=== PATIENT | female | born 1975 | race Caucasian/White ===

== ENCOUNTER → 2017-10-12 | Outpatient (CLI) | payer OTHER ==
[~2017-10-12] MED LIST: ACYC400 PO; ALLERGY RELIEF10 MG PO; BUSP10 PO; CITA20 PO; CYCL10 PO; Cyclobenzaprine5 MG PO; DEEP BLUE RELI; Diclofenac Sodi50 MG; Flonase 0.05% N16 GM; LORA1 PO; MAGNESIUM400 M1; OMEP20ER PO; PROM25 PO; Prednisone20 MG PO; RANI150 PO; SERT50 PO; SUCR1 PO; Triamcinolone A15 GM TOP
[2017-10-14 12:41] LABS: HPV Genotype 16 Not Detected (NOTDET); HPV Genotype 18 Not Detected (NOTDET)
[2017-10-18 12:07] LABS: HPV High Risk Other Not Detected (NOTDET)
== END ==
LOC: LAB 17:45
PROVIDERS: Registered Nurse Community Health
DX: Z12.4 Encounter for screening for malignant neoplasm of cervix (principal)
CPT/HCPCS: 87624; G0123

== ENCOUNTER → 2018-11-28 | Outpatient (CLI) | payer OTHER | END | disposition home or self-care (01) | LOC: LAB SHORT 12:02 → LAB 12:02 | DX: R10.2 Pelvic and perineal pain (principal) | CPT/HCPCS: 87086 ==

== ENCOUNTER → 2021-03-31 | Outpatient (CLI) | payer OTHER ==
[2021-04-01 13:11] LABS: HPV 16 Negative (Negative); HPV 18 Negative (Negative); HPV OTHER HR TYPES Negative (Negative)
== END ==
LOC: LAB 13:44 → LAB SHORT 13:44
PROVIDERS: Registered Nurse Community Health
DX: Z12.4 Encounter for screening for malignant neoplasm of cervix (principal)
CPT/HCPCS: 87624; G0123

== ENCOUNTER 2023-06-24 09:45 | Day surgery (SDC) | payer OTHER ==
[~2023-06-24] VITALS: Ht 157.5 cm; Wt 55.4 kg
[2023-06-24] MEDS ORDERED: BUPR75 (10:07)
[2023-06-24] MEDS ORDERED: Clonazepam0.125 MG (10:08)
[2023-06-24] MEDS ORDERED: MONT5TCH (10:08)
[2023-06-24] MEDS ORDERED: BUSP5 (10:08)
[2023-06-24] MEDS ORDERED: ALBU2.5V5 (10:09)
[2023-06-24 12:18] VITALS: BP 101/60
== END 2023-06-24 12:17 | disposition home or self-care (01) ==
LOC: ORSCSDS 09:45
PROVIDERS: Internal Medicine Gastroenterology
PROC: 0DBE8ZX Excision of Large Intestine, Via Natural or Artificial Opening Endoscopic, Diagnostic (ICD-10-PCS; principal; 2023-06-24 11:00)
PROC: 0DB98ZX Excision of Duodenum, Via Natural or Artificial Opening Endoscopic, Diagnostic (ICD-10-PCS; principal; 2023-06-24 11:00)
PROC: 0DB68ZX Excision of Stomach, Via Natural or Artificial Opening Endoscopic, Diagnostic (ICD-10-PCS; principal; 2023-06-24 11:00)
DX: R19.4 Change in bowel habit (principal); K29.70 Gastritis, unspecified, without bleeding; F17.210 Nicotine dependence, cigarettes, uncomplicated; Z79.899 Other long term (current) drug therapy
CPT/HCPCS: 88305; 88342; J2704; J7120

== ENCOUNTER → 2023-07-12 | Outpatient (CLI) | payer OTHER ==
[~2023-07-12] MED LIST changes: +ALBU2.5V5; +BUPR75; +BUSP5; +Clonazepam0.125 MG; +MONT5TCH
== END ==
LOC: LAB 11:26 → LAB SHORT 11:26
PROVIDERS: Physician Assistant Medical
DX: R15.1 Fecal smearing (principal); R19.5 Other fecal abnormalities
CPT/HCPCS: 82653; 83993

== ENCOUNTER → 2024-07-16 | Outpatient (CLI) | payer OTHER ==
[~2024-07-16] MED LIST changes: +BUPROPION XL450 MG PO; +Budeprion Xl300 MG MT; +CREON DR 12,001 EACH PO; +MONT10T PO; +PROG100 PO; +QUET100 MT; +SUMA25 PO; +TOPI50 PO
[2024-07-16 15:45] LABS: Candida Group, PCR NOT DETECTED (NOT DETECT); Candida glabrata-krusei, PCR NOT DETECTED (NOT DETECT)
[2024-07-16 15:48] LABS: Bacterial Vaginosis PCR Positive (NEGATIVE)
== END | disposition home or self-care (01) ==
LOC: LAB 12:39 → LAB SHORT 12:39
PROVIDERS: Registered Nurse Community Health
DX: N89.8 Other specified noninflammatory disorders of vagina (principal)
CPT/HCPCS: 87481; 87661; 87801

== ENCOUNTER → 2024-08-15 | Outpatient (CLI) | payer OTHER ==
[~2024-08-15] MED LIST changes: -Budeprion Xl300 MG MT; +MULVITA PO; +Triamcinolone A15 G2; +VITAMIN D5000 UNIT PO
[2024-08-16 14:31] LABS: Percent Saturation 42.7 % (15.0-50.0)
== END | disposition home or self-care (01) ==
LOC: LAB 12:40 → LAB SHORT 12:40
PROVIDERS: Internal Medicine Hematology & Oncology
DX: E61.1 Iron deficiency (principal)
CPT/HCPCS: 82607; 82728; 83540; 83550

== ENCOUNTER 2024-08-29 11:08 | Day surgery (SDC) | payer OTHER ==
[~2024-08-29] VITALS: Ht 157.5 cm; Wt 65.3 kg
[2024-08-29] VITALS (12 sets, daily range): BP systolic 112–134; BP diastolic 64–81
[~2024-08-29 11:08] MED LIST changes: +BUPROPION XL450 M1 PO; +Buspirone HCl15 MG PO; -Triamcinolone A15 G2; +Triamcinolone A15 G2 TOP
[2024-08-29] MEDS ORDERED: Lactated Ringer's 1,000 ML IV SCH ×2 (11:55→16:55)
[2024-08-29] MEDS ORDERED: CeFAZolin Sodium 2,000 MG in NS 100 ML IV SCH ×2 (11:55→19:30)
[2024-08-29] MEDS ORDERED: CeFAZolin Sodium 2,000 MG VIAL ONE (12:01)
--- NOTE | 2024-08-29 12:24 | NUR ---
History, Chart, Medications and Allergies reviewed before start of procedure. Pre-Op teaching done. Pt verbalizes understanding. Patient confirms NPO status and agrees with scheduled surgery. PT BELONGINGS BAG PLACED UNDER BED. PT REQUESTS TO LEAVE CONTACTS IN. SAYS SHE CAN SLEEP WITH THEM IN.
[2024-08-29] MEDS ORDERED: Bupivacaine 0.5% HCl 5 MG/ML 30MLVIAL ONE (12:38)
--- NOTE | 2024-08-29 12:42 | NUR ---
CONTACTS OUT PER ANESTHESIOLOGIST. PT REMOVED & PLACED IN INDIVIDUAL SPECIMEN CUPS WITH SALINE, LABELLED & PLACED WITH PT BELONGINGS.
[2024-08-29] MEDS ORDERED: Acetaminophen 500 MG Tab PO ONE (12:45)
[2024-08-29] MEDS ORDERED: Ondansetron HCl 2 MG / ML 2ML Vial ONE (12:54)
[2024-08-29] MEDS ORDERED: Lidocaine HCl 2% 20 ML MDV ONE (12:54)
[2024-08-29] MEDS ORDERED: propofoL 20 ML IV ONE (12:54)
[2024-08-29] MEDS ORDERED: Metoclopramide HCl 5MG / ML 2ML Vial ONE (12:54)
[2024-08-29] MEDS ORDERED: Rocuronium Bromide 10 MG/ML 5ML Injection IV ONE (12:54)
[2024-08-29] MEDS ORDERED: HYDROmorphone HCl/Pf 1MG SYR ONE (12:55)
[2024-08-29] MEDS ORDERED: Midazolam HCl 1MG / ML 2ML Vial ONE (13:07)
[2024-08-29] MEDS ORDERED: Magnesium Sulfate 500 MG / ML 2ML Vial IV ONE (13:25)
[2024-08-29] MEDS ORDERED: Sugammadex Sodium 200 MG/2ML SDV (100 MG/ML) ONE (15:28)
--- NOTE | 2024-08-29 16:29 | NUR ---
ARRIVAL TO UNIT AFTER RECEIVING REPORT FROM GAMING DEALER, PATIENT TRANSFERRED TO UNIT AT APPROX 1615. PATIENT ALERT AND ORIENTED X4. COMMUNICATES NEEDS EFFECTIVELY. AMBULATED FROM GURNEY TO RESTROOM TO VOID WITH SBA. BACK IN BED. S/P ROBOTIC TOTAL HYSTER - X4 LAP SITES C/D/I. DENIES PAIN @ THIS TIME - MD WONDERLY TO PLACE ORDERS FOR PAIN MANAGEMENT PER GAMING DEALER. TOLERATING SMALL SIPS OF WATER. SCANT BLEEDING ON NITA PAD. CALL LIGHT IN REACH. FAMILY AT BEDSIDE.
[2024-08-29] MEDS ORDERED: SUMAtriptan succinate 50 MG Tab PO PRN (16:45)
[2024-08-29] MEDS ORDERED: Promethazine HCl 25 MG Tab PO PRN (16:50)
[2024-08-29] MEDS ORDERED: FLU VACC TS2024-25(6MOS UP)/PF 45 MCG/0.5 ML SYRINGE IM SCH (16:55)
[2024-08-29] MEDS ORDERED: HYDROmorphone HCl/Pf 1MG SYR IV PRN (16:55)
[2024-08-29] MEDS ORDERED: Naloxone HCl 0.4MG / ML 1ML Vial IV PRN (16:55)
[2024-08-29] MEDS ORDERED: OxyCODONE 5 mg/Acetamin 325 mg TABLET PO PRN (16:55)
[2024-08-29] MEDS ORDERED: Promethazine HCl 12.5 MG Supp PR PRN (16:55)
[2024-08-29] MEDS ORDERED: Ondansetron 4 MG TAB PO PRN (17:00)
[2024-08-29] MEDS ORDERED: Amylase/Lipase/Protease DR Cap 12,000 PO PRN (17:00)
[2024-08-29] MEDS ORDERED: Ondansetron HCl 2 MG / ML 2ML Vial IV PRN (17:00)
[2024-08-29] MEDS ORDERED: Simethicone 80 MG Chew PO PRN (17:00)
[2024-08-29] MEDS ORDERED: Ketorolac Tromethamine 30mg Vial IV PRN (17:05)
[2024-08-29] MEDS ORDERED: Amylase/Lipase/Protease DR Cap 12,000 PO SCH (17:30)
--- NOTE | 2024-08-29 17:53 | NUR ---
SHIFT SUMMARY NO ACUTE CHANGES SINCE ARRIVAL TO UNIT. POST OP VS REMAIN STABLE. PAIN TOLERABLE PER EMAR AND WITH KPAD IN PLACE. X4 LAP SITES REMAIN C/D/I. SCANT DRAINAGE ON NITA PAD. EAGER TO DC HOME. AWAITING LARGER POST OP VOID. TOLERATING PO INTAKE - DENIES NAUSEA/VOMITING. WILL CONTINUE TO MONITOR AND REPORT TO ONCOMING RN.
[2024-08-29] MEDS ORDERED: BusPIRone HCl 10 MG Tab PO SCH (21:00)
[2024-08-29] MEDS ORDERED: Acyclovir 400 MG Tab PO SCH (21:00)
[2024-08-29] MEDS ORDERED: BuPROPion HCl 75 MG Tab PO SCH (21:00)
[2024-08-29] MEDS ORDERED: Montelukast Sodium 10 MG Tab PO SCH (21:00)
[2024-08-29] MEDS ORDERED: Topiramate 100 MG Tab PO SCH (21:00)
[2024-08-29] MEDS ORDERED: QUEtiapine Fumarate 100 MG Tab PO SCH (21:00)
--- NOTE | 2024-08-29 21:26 | NUR ---
DISCHARGE SUMMARY: PT D/C TO HOME W/FAMILY MEMBER TO DRIVE. DISCHARGE INSTRUCTIONS AND F/U CARE REV W/PT. EXTRA NITA PADS AND DC INSTRUCTIONS SENT W/PT. PT REP HAVING ALREADY PICKED UP PAIN MED SCRIPT. PT VSS, NO DISTRESS NOTED. PT AMB INDEP W/FAMILY MEMBER AT SIDE. PRIMARY RN UPDATED.
[2024-08-30] MEDS ORDERED: Omeprazole 20 MG CapCR PO SCH (07:30)
[2024-08-30] MEDS ORDERED: Loratadine 10 MG Tab PO SCH (09:00)
[2024-08-30] MEDS ORDERED: Estradiol 1 MG Tab PO SCH (09:00)
== END 2024-08-29 21:00 | disposition home or self-care (01) ==
LOC: ORSCMMR 11:08 → ORD 12:30 → SURS 16:09 → ORSCMMR 21:00
PROVIDERS: Obstetrics & Gynecology
PROC: 0UT9FZZ Resection of Uterus, Via Natural or Artificial Opening With Percutaneous Endoscopic Assistance (ICD-10-PCS; principal; 2024-08-29 12:30)
PROC: 0UT2FZZ Resection of Bilateral Ovaries, Via Natural or Artificial Opening With Percutaneous Endoscopic Assistance (ICD-10-PCS; principal; 2024-08-29 12:30)
PROC: 0UT7FZZ Resection of Bilateral Fallopian Tubes, Via Natural or Artificial Opening With Percutaneous Endoscopic Assistance (ICD-10-PCS; principal; 2024-08-29 12:30)
DX: N92.0 Excessive and frequent menstruation with regular cycle (principal); N94.10 Unspecified dyspareunia; D50.0 Iron deficiency anemia secondary to blood loss (chronic); N84.1 Polyp of cervix uteri; N94.6 Dysmenorrhea, unspecified; R10.2 Pelvic and perineal pain; N80.03 Adenomyosis of the uterus; N83.8 Other noninflammatory disorders of ovary, fallopian tube and broad ligament; K21.9 Gastro-esophageal reflux disease without esophagitis; F43.10 Post-traumatic stress disorder, unspecified; Z79.899 Other long term (current) drug therapy
CPT/HCPCS: 86850; 86900; 86901; 88307; 94762; A9270; J0690; J1171; J1885; J2250; J2405; J2704; J2765; J3475; J7120

== ENCOUNTER → 2024-09-20 | Outpatient (CLI) | payer OTHER ==
[2024-09-20 17:34] LABS: BASOPHILS ABSOLUTE AUTO 0.04 K/mm3 (0.00-0.23); BASOPHILS PERCENT AUTO 0 % (0-2); EOSINOPHILS ABSOLUTE AUTO 0.46 K/mm3 (0.00-0.68); EOSINOPHILS PERCENT AUTO 5 % (0-6); Hematocrit 36.2 % (33.0-51.0); Hemoglobin 11.9 g/dL (11.5-16.0); IMMATURE GRAN ABSOLUTE AUTO 0.01 K/mm3 (0.00-0.10); IMMATURE GRAN PERCENT AUTO 0 % (0-1); LYMPHOCYTES ABSOLUTE AUTO 1.89 K/mm3 (0.84-5.20); LYMPHOCYTES PERCENT AUTO 21 % (21-46); MONOCYTES ABSOLUTE AUTO 0.66 K/mm3 (0.16-1.47); MONOCYTES PERCENT AUTO 7 % (4-13); Mean Corpuscular HGB 32.7 pg (26.0-34.0); Mean Corpuscular HGB Conc 32.9 g/dL (31.5-36.5); Mean Corpuscular Volume 100 fL (80-100); Mean Platelet Volume 10.2 fL (9.1-12.4); NEUTROPHILS ABSOLUTE AUTO 5.84 K/mm3 (1.96-9.15); NEUTROPHILS PERCENT AUTO 66 % (41-73); Platelet Count 372 K/mm3 (150-400); RDW Coefficient Variation 11.7 % (11.7-14.2); RDW Standard Deviation 42.7 fL (35.1-46.3); Red Blood Cell Count 3.64 M/mm3 (3.80-5.20)
[2024-09-20 18:20] LABS: Percent Saturation 27.9 % (15.0-50.0)
== END ==
LOC: LAB SHORT 16:09 → LAB 16:09
PROVIDERS: Internal Medicine Hematology & Oncology
DX: E61.1 Iron deficiency (principal)
CPT/HCPCS: 36415; 82728; 83540; 83550; 85025

== ENCOUNTER → 2025-01-29 | Outpatient (CLI) | payer OTHER ==
[2025-01-29 18:21] LABS: Percent Saturation 37.8 % (15.0-50.0)
== END ==
LOC: LAB 15:51 → LAB SHORT 15:51
PROVIDERS: Internal Medicine Hematology & Oncology
DX: E61.1 Iron deficiency (principal)
CPT/HCPCS: 82728; 83540; 83550

== ENCOUNTER → 2025-04-03 | Outpatient (CLI) | payer OTHER ==
[2025-04-03 15:08] LABS: BASOPHILS ABSOLUTE AUTO 0.04 K/mm3 (0.00-0.23); BASOPHILS PERCENT AUTO 1 % (0-2); EOSINOPHILS ABSOLUTE AUTO 0.13 K/mm3 (0.00-0.68); EOSINOPHILS PERCENT AUTO 2 % (0-6); Hematocrit 38.7 % (33.0-51.0); Hemoglobin 13.0 g/dL (11.5-16.0); IMMATURE GRAN ABSOLUTE AUTO 0.01 K/mm3 (0.00-0.10); IMMATURE GRAN PERCENT AUTO 0 % (0-1); LYMPHOCYTES ABSOLUTE AUTO 2.25 K/mm3 (0.84-5.20); LYMPHOCYTES PERCENT AUTO 29 % (21-46); MONOCYTES ABSOLUTE AUTO 0.68 K/mm3 (0.16-1.47); MONOCYTES PERCENT AUTO 9 % (4-13); Mean Corpuscular HGB Conc 33.6 g/dL (31.5-36.5); Mean Corpuscular Volume 97 fL (80-100); NEUTROPHILS ABSOLUTE AUTO 4.59 K/mm3 (1.96-9.15); NEUTROPHILS PERCENT AUTO 60 % (41-73); NRBC ABSOLUTE 0.00 K/mm3 (0.00-0.02); NRBC Auto 0.0 /100 WBC (0.0-0.2); Platelet Count 313 K/mm3 (150-400); RDW Coefficient Variation 11.8 % (11.7-14.2); RDW Standard Deviation 42.1 fL (35.1-46.3)
== END | disposition home or self-care (01) ==
LOC: LAB 13:34 → LAB SHORT 13:34
PROVIDERS: Internal Medicine Hematology & Oncology
DX: E61.1 Iron deficiency (principal)
CPT/HCPCS: 85025

== ENCOUNTER → 2025-05-07 | Outpatient (CLI) | payer OTHER ==
[2025-05-07 14:09] LABS: BASOPHILS ABSOLUTE AUTO 0.05 K/mm3 (0.00-0.23); BASOPHILS PERCENT AUTO 1 % (0-2); EOSINOPHILS ABSOLUTE AUTO 0.35 K/mm3 (0.00-0.68); EOSINOPHILS PERCENT AUTO 5 % (0-6); Hematocrit 39.6 % (33.0-51.0); Hemoglobin 13.4 g/dL (11.5-16.0); IMMATURE GRAN ABSOLUTE AUTO 0.01 K/mm3 (0.00-0.10); IMMATURE GRAN PERCENT AUTO 0 % (0-1); LYMPHOCYTES ABSOLUTE AUTO 1.69 K/mm3 (0.84-5.20); LYMPHOCYTES PERCENT AUTO 23 % (21-46); MONOCYTES ABSOLUTE AUTO 0.57 K/mm3 (0.16-1.47); MONOCYTES PERCENT AUTO 8 % (4-13); Mean Corpuscular HGB Conc 33.8 g/dL (31.5-36.5); Mean Corpuscular Volume 96 fL (80-100); NEUTROPHILS ABSOLUTE AUTO 4.65 K/mm3 (1.96-9.15); NEUTROPHILS PERCENT AUTO 64 % (41-73); NRBC ABSOLUTE 0.00 K/mm3 (0.00-0.02); NRBC Auto 0.0 /100 WBC (0.0-0.2); Platelet Count 316 K/mm3 (150-400); RDW Coefficient Variation 12.2 % (11.7-14.2); RDW Standard Deviation 43.1 fL (35.1-46.3)
[2025-05-07 14:23] LABS: Alanine Aminotransfer (ALT/SGP 20.0 U/L (12-78); Albumin, Blood 4.4 g/dL (3.4-5.0); Albumin/Globulin Ratio 1.3 (0.8-1.8); Anion Gap 11.0 mmol/L (3-11); Aspartate Aminotrans (AST/SGOT 19.0 U/L (12-37); Bilirubin, Total 0.5 mg/dL (0.1-1.0); Blood Urea Nitrogen 25.0 mg/dL (8-24); CO2, Blood 30.0 mmol/L (21-32); Calcium, Blood 9.8 mg/dL (8.5-10.1); Chloride, Blood 100.0 mmol/L (98-108); Creatinine, Blood 1.26 mg/dL (0.40-1.00); Globulin, Blood 3.3 g/dL (2.2-4.0); Glucose, Blood 88.0 mg/dL (70-99); Potassium, Blood 3.8 mmol/L (3.5-5.5); Sodium, Blood 137.0 mmol/L (136-145); Total Protein, Blood 7.7 g/dL (6.4-8.2)
== END ==
LOC: LAB SHORT 14:05 → LAB 14:05
PROVIDERS: Chiropractor
DX: R10.9 Unspecified abdominal pain (principal)
CPT/HCPCS: 80053; 83690; 85025

== ENCOUNTER 2025-06-23 19:17 | Emergency (ER) | payer OTHER ==
[~2025-06-23] VITALS: Ht 157.5 cm; Wt 59.0 kg
[2025-06-23 19:18] VITALS: BP 121/65
[2025-06-23] MEDS ORDERED: Prochlorperazine Edisylate 10 mg Vial IV ONE (19:25)
[2025-06-23] MEDS ORDERED: DiphenhydrAMINE HCl 50 MG/ML 1ML Vial IV ONE (19:30)
[2025-06-23] MEDS ORDERED: Ketorolac Tromethamine 15mg Vial IV ONE (19:30)
== END 2025-06-23 20:25 | disposition home or self-care (01) ==
LOC: ER 19:17
DX: G43.909 Migraine, unspecified, not intractable, without status migrainosus (principal); F17.200 Nicotine dependence, unspecified, uncomplicated; Z88.8 Allergy status to other drugs, medicaments and biological substances; Z91.0120 Allergy to eggs, unspecified; Z91.0110 Allergy to milk products, unspecified; Z91.018 Allergy to other foods; Z79.899 Other long term (current) drug therapy
CPT/HCPCS: 96374; 96375; 99282-25; J0780; J1200; J1885

== ENCOUNTER → 2025-07-17 | Outpatient (CLI) | payer OTHER ==
[2025-07-17 20:52] LABS: Microalbumin, Urine Quant. 31.5 mg/L (0.000-20.000); Protein, Urine Quantitative 15.9 mg/dL (0.0-11.9)
== END ==
LOC: LAB SHORT 16:55 → LAB 16:55 → LAB FUT 07-10 13:40
PROVIDERS: Internal Medicine Nephrology
DX: N18.2 Chronic kidney disease, stage 2 (mild) (principal); D63.1 Anemia in chronic kidney disease; N25.81 Secondary hyperparathyroidism of renal origin; E55.9 Vitamin D deficiency, unspecified; E78.00 Pure hypercholesterolemia, unspecified; R76.9 Abnormal immunological finding in serum, unspecified; R94.5 Abnormal results of liver function studies; R94.6 Abnormal results of thyroid function studies; D51.8 Other vitamin B12 deficiency anemias; D52.8 Other folate deficiency anemias; D50.9 Iron deficiency anemia, unspecified
CPT/HCPCS: 81050; 82043; 82570; 84156